=== PATIENT | male | born 1960 | race African-American/Black ===

== ENCOUNTER 2016-09-03 14:58 | Emergency (ER) | payer OTHER ==
[2016-09-03 16:30] LABS: BASOPHIL 0.3 % (0-2); EOSINOPHIL 2.2 % (0-5); HCT 40.8 % (42.0-52.0); HGB 14.1 g/dl (13.2-18.0); LYMPHOCYTE 22.4 % (15-48); MCHC 34.6 g/dL (32.0-36.0); MONOCYTE 7.9 % (0-12); MPV 11.2 fL (6.0-9.5); NEUTROPHIL 67.2 % (41-80); PLT 198 K/uL (150-400); RBC 5.04 M/uL (4.70-6.00); RDW 14.4 % (11.5-14.0); WBC 11.5 K/uL (4.0-10.5)
[2016-09-03 16:47] LABS: ALBUMIN 3.5 g/dL (3.5-5.0); BILIRUBIN - TOTAL 0.5 mg/dL (0.1-1.0); CREATININE 2.5 mg/dL (0.7-1.2); GLOBULIN (CALCULATION) 4.1 g/dL (2.2-4.2); POTASSIUM 3.8 mmol/L (3.5-5.1); TOTAL PROTEIN 7.6 g/dL (6.4-8.3)
[2016-09-03 16:52] LABS: BILIRUBIN NEGATIVE (NEGATIVE); BLOOD 2+ Ery/uL (NEGATIVE); CLARITY CLEAR (CLEAR); COLOR YELLOW (YELLOW); GLUCOSE (U) TRACE mg/dL (NORMAL); KETONE (U) NEGATIVE (NEGATIVE); LEUKOCYTES NEGATIVE Leu/uL (NEGATIVE); NITRITE NEGATIVE (NEGATIVE); PROTEIN 3+ mg/dL (NEGATIVE); UROBILINOGEN 0.2 mg/dL (0.2-1.0)
[2016-09-03 17:12] LABS: BACTERIA 1+; MUCOUS TRACE
== END 2016-09-03 18:15 | disposition home or self-care (01) ==
LOC: FER 14:58
PROVIDERS: Emergency Medicine
DX: I10 Essential (primary) hypertension (principal); E11.9 Type 2 diabetes mellitus without complications; Z79.84 Long term (current) use of oral hypoglycemic drugs; Z79.4 Long term (current) use of insulin; Z79.899 Other long term (current) drug therapy
CPT/HCPCS: 36415; 80053; 81001; 85025; 93005; J1885

== ENCOUNTER 2021-05-19 07:19 | Emergency (ER) | payer OTHER, MEDICARE ==
[~2021-05-19 07:19] MED LIST: ANDROGEL1.25 GM TOP; BACLOFEN 10MG T10 MG PO; BENICAR40 MG PO; FLEXERIL10 MG PO; HUMALOG 75100 UNIT/M SC; HYDRALAZINE25 MG PO; NORVASC 10MG TA10 MG PO; VITAMIN D250000 UNIT PO
[2021-05-19] MEDS ORDERED: NAPROXEN500 MG PO (09:07)
[2021-05-19] MEDS ORDERED: CYCLOBENZAPRINE10 MG PO (09:07)
== END 2021-05-19 09:18 | disposition home or self-care (01) ==
LOC: FER 07:19
DX: M54.50 Low back pain, unspecified (principal); E11.22 Type 2 diabetes mellitus with diabetic chronic kidney disease; N18.9 Chronic kidney disease, unspecified
CPT/HCPCS: J1885

== ENCOUNTER 2021-09-06 22:50 | Emergency (ER) | payer MEDICARE, OTHER ==
[~2021-09-06 22:50] MED LIST changes: +CYCLOBENZAPRINE10 MG PO; +NAPROXEN500 MG PO
[2021-09-07 01:05] LABS: BASOPHIL 0.4 % (0-2); EOSINOPHIL 0.3 % (0-5); HCT 34.9 % (42.0-52.0); HGB 11.3 g/dl (13.2-18.0); LYMPHOCYTE 8.4 % (15-48); MCH 31.1 pg (25.0-31.0); MCHC 32.4 g/dL (32.0-36.0); MCV 96.1 fL (78.0-100.0); MONOCYTE 5.5 % (0-12); MPV 10.8 fL (6.0-9.5); NRBC 0; PLT 166 K/uL (150-400); RBC 3.63 M/uL (4.70-6.00); RDW 13.9 % (11.5-14.0); WBC 15.6 K/uL (4.0-10.5)
[2021-09-07 01:31] LABS: ALBUMIN 4.5 g/dL (3.4-5.0); BILIRUBIN - TOTAL 0.4 mg/dL (0.2-1.0); BUN/CREAT RATIO (CALC) 3.7 RATIO; CREATININE 11.19 mg/dL (0.67-1.17); GLOBULIN (CALCULATION) 4.6 g/dL; POTASSIUM 4.9 mmol/L (3.5-5.1); TOTAL PROTEIN 9.1 g/dL (6.4-8.2)
[2021-09-07 03:51] LABS: CORONAVIRUS 2019 SARS-COV-2 NEGATIVE (NEGATIVE); INFLUENZA A NAA NEGATIVE (NEGATIVE)
[2021-09-07] MEDS ORDERED: PHENERGAN25 M1 PO (04:03)
[2021-09-07] MEDS ORDERED: ONDANSETRON ODT4 MG PO (04:03)
== END 2021-09-07 04:14 | disposition home or self-care (01) ==
LOC: FER 22:50
PROVIDERS: Emergency Medicine
DX: A05.9 Bacterial foodborne intoxication, unspecified (principal); E11.22 Type 2 diabetes mellitus with diabetic chronic kidney disease; N18.6 End stage renal disease; Z99.2 Dependence on renal dialysis; Z20.822 Contact with and (suspected) exposure to COVID-19
CPT/HCPCS: 36415; 80053; 83690; 85025; J0780; J1200; J1885; J2405; J2550; J7030; U0002

== ENCOUNTER 2021-09-15 09:28 | Emergency (ER) | payer MEDICARE, OTHER ==
[~2021-09-15 09:28] MED LIST changes: +ONDANSETRON ODT4 MG PO; +PHENERGAN25 M1 PO
[2021-09-15 11:15] LABS: BASOPHIL 0.3 % (0-2); EOSINOPHIL 0.1 % (0-5); HCT 33.8 % (42.0-52.0); HGB 10.9 g/dl (13.2-18.0); LYMPHOCYTE 8.6 % (15-48); MCH 31.5 pg (25.0-31.0); MCHC 32.2 g/dL (32.0-36.0); MCV 97.7 fL (78.0-100.0); MPV 10.4 fL (6.0-9.5); NEUTROPHIL 84.2 % (41-80); NRBC 0; PLT 185 K/uL (150-400); RBC 3.46 M/uL (4.70-6.00); RDW 13.3 % (11.5-14.0); WBC 14.8 K/uL (4.0-10.5)
[2021-09-15 11:19] LABS: BUN/CREAT RATIO (CALC) 2.4 RATIO; CREATININE 6.31 mg/dL (0.67-1.17); POTASSIUM 3.5 mmol/L (3.5-5.1)
[2021-09-15] MEDS ORDERED: ONDANSETRON ODT4 MG PO (14:34)
== END 2021-09-15 15:40 | disposition home or self-care (01) ==
LOC: FER 09:28
PROVIDERS: Emergency Medicine
DX: R11.2 Nausea with vomiting, unspecified (principal); E11.9 Type 2 diabetes mellitus without complications; N30.20 Other chronic cystitis without hematuria; N40.0 Benign prostatic hyperplasia without lower urinary tract symptoms; I10 Essential (primary) hypertension; Z79.4 Long term (current) use of insulin; Z96.41 Presence of insulin pump (external) (internal); Z79.899 Other long term (current) drug therapy
CPT/HCPCS: 36415; 80048; 85025; J0696; J2405